=== PATIENT | female | born 1965 | race Caucasian/White ===

== ENCOUNTER → 2017-10-22 09:26 | Outpatient (CLI) | payer OTHER, SELFPAY ==
--- NOTE | 2017-10-22 | DI.RAD.S_ITS ---
This blank DEXA report has been sent in error by the PACS system. The correct and complete report will be forthcoming in 1-2 days. Thank you for your patience and understanding. Dictated by: Jake Mcknight M.D. on 10/22/2017 at 11:25 Approved by: Jake Mcknight M.D. on 10/22/2017 at 11:28
--- NOTE | 2017-10-22 | DI.RAD.S_ITS ---
PROCEDURE: XR CHEST 2V INDICATIONS: COPD TECHNIQUE: 2 views of the chest were acquired. COMPARISON: None. FINDINGS: Surgical changes and devices: None. Lungs and pleura: No pleural effusions or pneumothorax. Lungs are clear. Mild hyperinflation. Mediastinum: Mediastinal contours are normal. Heart size is normal. Bones and chest wall: No suspicious bony abnormalities. Soft tissues appear unremarkable. IMPRESSION: No acute pulmonary process. Dictated by: Anca Kohler M.D. on 10/22/2017 at 11:26 Approved by: Anca Kohler M.D. on 10/22/2017 at 11:28
--- NOTE | 2017-10-22 | DI.RAD.S_ITS ---
PROCEDURE: XR KNEE LT 3V INDICATIONS: KNEE ARTHRITIS TECHNIQUE: 3 views of the knee were acquired. COMPARISON: None. FINDINGS: Bones: No fractures or dislocations. No suspicious bony lesions. Moderate medial and patellofemoral compartment narrowing. Periventricular osteophytes are present. Degenerative subchondral sclerosis is noted in the medial compartment. No gross erosions. Soft tissues: No joint effusion. No suspicious soft tissue calcifications. IMPRESSION: Moderate medial patellofemoral compartment narrowing as above. This is suggestive of osteoarthritis. Dictated by: Anca Kohler M.D. on 10/22/2017 at 11:28 Approved by: Anca Kohler M.D. on 10/22/2017 at 11:59
== END ==
PROVIDERS: Family Provider Internal Medicine; PCP Internal Medicine; Visit Provider Internal Medicine
DX: M25.562 Pain in left knee (principal); M17.12 Unilateral primary osteoarthritis, left knee; J44.9 Chronic obstructive pulmonary disease, unspecified; M85.88 Other specified disorders of bone density and structure, other site; Z78.0 Asymptomatic menopausal state; F17.200 Nicotine dependence, unspecified, uncomplicated
CPT/HCPCS: 71046; 73562; 77080

== ENCOUNTER → 2017-12-13 10:53 | Outpatient (CLI) | payer OTHER, SELFPAY ==
--- NOTE | 2017-12-13 | DI.MG.S_ITS ---
BILATERAL DIGITAL SCREENING MAMMOGRAM 3D/2D WITH CAD: 12/13/2017 CLINICAL: Routine screening. Baseline exam. Family history of breast cancer. No prior exams were available for comparison. The tissue of both breasts is heterogeneously dense. This may lower the sensitivity of mammography. Current study was also evaluated with a Computer Aided Detection (CAD) system. There is an asymmetry with grouped calcifications in the right breast anterior depth central to the nipple seen on the craniocaudal view only. No other significant masses, calcifications, or other findings are seen in either breast. IMPRESSION: INCOMPLETE: NEEDS ADDITIONAL IMAGING EVALUATION The asymmetry in the right breast is indeterminate. Spot magnification and spot compression views are recommended. This exam was interpreted at Station ID: [id number]. NOTE: For mammograms, a report in lay terms will be sent to the patient. Approximately 15% of breast malignancies will not be visualized mammographically. In the management of a palpable breast mass, a negative mammogram must not discourage biopsy of a clinically suspicious lesion. Electronically Signed By: Alana jack/bailey:12/13/2017 17:04:01 letter sent: Additional Imaging Needed ACR BI-RADS Category 0: Incomplete 3340F
== END ==
PROVIDERS: Family Provider Internal Medicine; PCP Internal Medicine; Visit Provider Internal Medicine
DX: Z12.31 Encounter for screening mammogram for malignant neoplasm of breast (principal); Z80.3 Family history of malignant neoplasm of breast
CPT/HCPCS: 77063; 77067

== ENCOUNTER → 2018-01-07 08:55 | Outpatient (CLI) | payer OTHER, SELFPAY ==
--- NOTE | 2018-01-07 | DI.MG.S_ITS ---
UNILATERAL RIGHT DIGITAL DIAGNOSTIC MAMMOGRAM 3D/2D WITH ADDITIONAL VIEWS: 01/07/2018 CLINICAL: Additional evaluation requested from prior study. Family history of breast cancer. Comparison is made to exam dated: 12/13/2017 [facility]. The tissue of right breast is heterogeneously dense. This may lower the sensitivity of mammography. Previously identified asymmetry with grouped calcifications in the right breast anterior depth central and slightly medial to the nipple seen on the craniocaudal view only on comparison screening mammograms persists with additional views. These calcifications are punctate, grouped, and measure 0.6 cm transverse by 0.7 cm anteroposterior. Multiple subcentimeter groups of punctate calcifications are identfied in the right breast on lateral views, but are not as concerning in appearance as the group seen on CC view described above. No clear convincing correlate is dentified on lateral views. IMPRESSION: SUSPICIOUS OF MALIGNANCY Previously identified asymmetry with grouped calcifications in the right breast anterior depth central and slightly medial to the nipple seen on the craniocaudal view only on comparison screening mammograms persists with additional diagnostic views. A stereotactic biopsy is recommended. These results were discussed with the patient by telephone by Dr. Daniels at 10:45 am on 01/07/2018. The patient confirmed her identity with two unique identifiers. The patient agrees to the stereotactic biopsy and understands she will have to travel to [facility] in [place], [place] to have this procedure performed. This exam was interpreted at Station ID: [id number]. NOTE: For mammograms, a report in lay terms will be sent to the patient. Approximately 15% of breast malignancies will not be visualized mammographically. In the management of a palpable breast mass, a negative mammogram must not discourage biopsy of a clinically suspicious lesion. Electronically Signed By: Jorge Daniels M.D. ecl/:01/07/2018 10:50:31 letter sent: Biopsy Required ACR BI-RADS Category 4a: Suspicious abnormality - low suspicion for malignancy 3344F
== END ==
PROVIDERS: Family Provider Internal Medicine; PCP Internal Medicine; Visit Provider Internal Medicine
DX: R92.1 Mammographic calcification found on diagnostic imaging of breast (principal); N64.89 Other specified disorders of breast; Z80.3 Family history of malignant neoplasm of breast
CPT/HCPCS: 77065; G0279

== ENCOUNTER 2018-10-06 10:40 | Emergency (ER) | payer OTHER, SELFPAY ==
[2018-10-06 10:49] VITALS: BP 154/97; PULSE 107; RESP 20; TEMP 36.8; O2SAT 97; BMI 21.4
--- NOTE | 2018-10-06 10:57 | DI.RAD.S_ITS ---
PROCEDURE: XR KNEE LT 3V INDICATIONS: pulling and moving a couch, left knee popped TECHNIQUE: 3 views of the knee were acquired. COMPARISON: None. FINDINGS: Bones: No fractures or dislocations. No suspicious bony lesions. Mild to moderate degenerative changes of the knee are identified. Soft tissues: There is a large joint effusion. No suspicious soft tissue calcifications. IMPRESSION: 1. No displaced knee fractures. 2. Moderate degenerative changes of the left knee. 3. Large left knee effusion. MRI may be helpful to exclude internal derangement, if indicated. Dictated by: Carlos Chacon M.D. on 10/06/2018 at 10:16 Approved by: Carlos Chacon M.D. on 10/06/2018 at 10:17
[2018-10-06] MEDS: HYDROCODONE/ACET 5/325 TABLET 1 TAB PO (11:43)
[2018-10-06] MEDS: KETOROLAC 60 MG/2 ML VIAL IM (11:43)
[2018-10-06] MEDS: LIDOCAINE PATCH 1 EACH ADH..PATCH TOP (11:44)
--- NOTE | 2018-10-06 11:57 | ED_ITS ---
HPI - Extremity Injury (Lower) <ZEHRA LeonardBC - Last Filed: 10/06/18 12:50> General Chief Complaint: Extremity Injury, Lower Stated Complaint: Left knee injury Time Seen by Provider: 10/06/18 11:03 Source: patient and family Mode of arrival: ambulatory Limitations: no limitations History of Present Illness HPI Narrative: The patient is a 53-year-old female current smoker with history of remote left knee injury who presents with a chief complaint of knee pain. She states she was pulling on a couch yesterday at 16 30 and felt a pop in her left knee. She states she has a history of remote knee injury when she was 10 years old on that side. She states she was able to ambulate immediately after and walk around last night. However this morning bad swelling and pain that she could not ambulate. She took some leftover Vicodin yesterday but has not had anything for pain today. She states that because she could not walk, she elected to come to the emergency department. She is not iced or elevated her knee. She states her knee feels like scrambled eggs. She denies any falls, complains of isolated knee injury. Related Data Home Medications Medication Instructions Recorded Confirmed ibuprofen 600 mg PO TIDP #0 10/02/11 Previous Rx's Medication Instructions Recorded hydrocodone-acetaminophen [Lamont] 1 tab PO Q4-6H PRN #7 tab 10/06/18 ketorolac 10 mg PO TID PRN #20 tab 10/06/18 Allergies Allergy/AdvReac Type Severity Reaction Status Date / Time No Known Drug Allergies Allergy Verified 10/06/18 10:54 Review of Systems <MICHAEL Leonard - Last Filed: 10/06/18 12:50> Review of Systems GENERAL: Denies chills, fatigue, malaise, fever, sweats. HEENT: Denies sinus pain, ear pain, sore throat, difficulty swallowing, dizzines s. RESPIRATORY: Denies dyspnea, cough, wheezing, hemoptysis, sputum. CARDIOVASCULAR: Denies chest pain, palpitations, orthopnea, edema, GASTROINTESTINAL: Denies nausea, vomiting, abdominal pain, diarrhea, constipation, melena. : Denies dysuria, frequency, incontinence, hematuria, urinary retention. MUSCULOSKELETAL: See HPI SKIN: Denies rash, skin lesions, or other NEUROLOGIC: Denies weakness, headache, numbness, change in speech, confusion, seizures, incoordination. PSYCHIATRIC: No concerning psychosocial issues. 12 point review of systems is negative except for those stated above PFSH <MICHAEL Leonard - Last Filed: 10/06/18 12:50> Social History Smoking Status: Current every day smoker Social History Smoking Status: Current every day smoker Exam <MICHAEL Leonard - Last Filed: 10/06/18 12:50> Narrative Exam Narrative: GENERAL: This is a well-nourished, well-developed patient, lying on stretcher with ice on knee HEAD: Atraumatic. Normocephalic. No temporal or scalp tenderness. EYES: Pupils equal round and reactive. Extraocular motions intact. No scleral icterus. No injection or drainage. ENT: Nose without bleeding, purulent drainage or septal hematoma. Throat without erythema, tonsillar hypertrophy or exudate. Uvula midline. Airway patent. NECK: Trachea midline. No JVD or lymphadenopathy. Supple, nontender, no meningeal signs. CARDIOVASCULAR: Regular rate and rhythm RESPIRATORY: Occasional cough. No increased respiratory effort. No accessory muscle use. EXTREMITIES: Positive pedal pulses noted left foot able flex and extend left knee. Left knee effusion noted. The difficult to evaluate varus valgus Duong anterior posterior drawer due to patient not relaxing and pain. No palpable instability noted. BACK: Nontender without deformity or crepitance. No flank tenderness. NEURO: AOx3. SKIN: No erythema or ecchymosis noted left knee. Initial Vital Signs Initial Vital Signs: Vital Signs Temperature 98.3 F 10/06/18 10:49 Pulse Rate 107 H 10/06/18 10:49 Respiratory Rate 20 10/06/18 10:49 Blood Pressure 154/97 H 10/06/18 10:49 Pulse Oximetry 97 10/06/18 10:49 <Rosita Estevez DO - Last Filed: 10/08/18 22:24> Initial Vital Signs Initial Vital Signs: Vital Signs Temperature 98.3 F 10/06/18 10:49 Pulse Rate 107 H 10/06/18 10:49 Respiratory Rate 20 10/06/18 10:49 Blood Pressure 154/97 H 10/06/18 10:49 Pulse Oximetry 97 10/06/18 10:49 Procedures <MICHAEL Leonard - Last Filed: 10/06/18 12:50> Orthopedic Splinting/Casting Injury #1: Side: left Lower Extremity Injury Location: knee Lower Extremity Immobilizer: knee immobilizer Other Orthopedic Equipment: crutches Post splinting neuro exam: intact Post splinting vascular exam: intact Placed by: Nursing Course <MICHAEL Leonard - Last Filed: 10/06/18 12:50> Orders Ordered: Discontinued Medications Hydrocodone Bitart/Acetaminophen ([place] 5/325) 1 tab PO NOW ONE Stop: 10/06/18 11:29 Last Admin: 10/06/18 11:43 Dose: 1 tab Ketorolac Tromethamine (Toradol) 60 mg IM NOW ONE Stop: 10/06/18 11:29 Last Admin: 10/06/18 11:43 Dose: 60 mg Lidocaine (Lidoderm) 1 each TOP NOW ONE Stop: 10/06/18 11:29 Last Admin: 10/06/18 11:44 Dose: 1 each Vital Signs - 8 hr 10/06/18 10:49 Temperature 98.3 F Pulse Rate 107 H Respiratory Rate 20 Blood Pressure 154/97 H Pulse Oximetry 97 <Rosita Estevez DO - Last Filed: 10/08/18 22:24> Orders Ordered: Discontinued Medications Hydrocodone Bitart/Acetaminophen ([place] 5/325) 1 tab PO NOW ONE Stop: 10/06/18 11:29 Last Admin: 10/06/18 11:43 Dose: 1 tab Ketorolac Tromethamine (Toradol) 60 mg IM NOW ONE Stop: 10/06/18 11:29 Last Admin: 10/06/18 11:43 Dose: 60 mg Lidocaine (Lidoderm) 1 each TOP NOW ONE Stop: 10/06/18 11:29 Last Admin: 10/06/18 11:44 Dose: 1 each Vital Signs - 8 hr 10/06/18 10:49 Temperature 98.3 F Pulse Rate 107 H Respiratory Rate 20 Blood Pressure 154/97 H Pulse Oximetry 97 MDM - Extremity Injury (Lower) <MICHAEL Leonard - Last Filed: 10/06/18 12:50> Imaging Data Knee x-ray: Radiologist's impression: [address] [address] XRay Report Signed Patient: Monalisa Clarke LMR#: [id number] : 1965Acct:[id number] Age/Sex: 53 / FDate of Service: 10/06/18 Loc: ED Accession Number: [id number] Procedure: XR knee LT 3V Ordering Provider: Rosita Estevez D.O. PROCEDURE: XR KNEE LT 3V INDICATIONS: pulling and moving a couch, left knee popped TECHNIQUE: 3 views of the knee were acquired. COMPARISON: None. FINDINGS: Bones: No fractures or dislocations. No suspicious bony lesions. Mild to m oderate degenerative changes of the knee are identified. Soft tissues: There is a large joint effusion. No suspicious soft tissue calcifications. IMPRESSION: 1. No displaced knee fractures. 2. Moderate degenerative changes of the left knee. 3. Large left knee effusion. MRI may be helpful to exclude internal derangement, if indicated. Dictated by: Carlos Chacon M.D. on 10/06/2018 at 10:16 Approved by: Carlos Chacon M.D. on 10/06/2018 at 10:17 [facility] Narrative Medical decision making narrative: The patient is a [age] year old female who presents after a knee injury. She has a negative x-ray. She is treated for pain in the emergency department lidocaine patch, Lamont and Toradol. She felt much improved after this. She is neurovascularly intact throughout her stay in the emergency department. After application of a knee immobilizer, the patient was able to ambulate well and weightbear. I discussed at length follow up with PCP as well as follow-up with her orthopedist. Gave her contact information for [facility]. Discussed coming back to the ER for any acute concerns such as chest pain shortness of breath or decreased circulation of foot. Patient states understanding of return precautions as well as follow-up care. Discharge Plan Departure Patient Disposition: Home Clinical Impression: Acute pain of left knee, Effusion of knee joint, left Strain of left knee Qualifiers: Encounter type: initial encounter Qualified Code(s): S86.912A - Strain of unspecified muscle(s) and tendon(s) at lower leg level, left leg, initial encounter Discharge Date/Time: 10/06/18 12:48 Interventions: ED Discharge Assessment Last Done: 10/06/18 12:47 Instructions: How to Use Crutches, DI for Knee Sprain, How To Perform RICE (Rest, Ice, Compress, Elevate), DI for Knee Effusion, DI for Knee Pain Activity Restrictions/Additional Instructions: Your x-ray came back with no acute fracture, but I am suspicious of a soft tissue injury Please follow up with Dr. Cazares. Please use rest ice compression elevation. We have placed you in a knee immobilizer and given crutches for comfort. I have given you a prescription of Lamont which can be constipating and sedating. Do not combine it with any other sedating Agents. I have also given you a prescription of ketorolac, do not combine this with any other NSAIDs such as ibuprofen, Mobic, Aleve etc I have also given you contact information for [facility]. Please come back to the emergency department for any acute concerns such as chest pain, shortness of breath etc Prescriptions: New hydrocodone-acetaminophen [Lamont] 5-325 mg tablet 1 tab PO Q4-6H PRN (Reason: pain) Qty: 7 RF: 0 ketorolac 10 mg tablet 10 mg PO TID PRN (Reason: pain) Qty: 20 RF: 0 No Action ibuprofen 600 MG tablet 600 mg PO TIDP Qty: 0 RF: 0 Referrals: [facility] [Provider Group] Juan Cazares MD [Primary Care Provider] - <Rosita Estevez DO - Last Filed: 10/08/18 22:24> [facility] Alivia Attestation: I was immediately available in the department for consultation. Documentation has been reviewed. I agree with assessment and plan.
[2018-10-06 12:47] VITALS: BP 145/86; PULSE 90; RESP 18; TEMP 37; O2SAT 99
== END 2018-10-06 12:48 | disposition home or self-care (01) ==
PROVIDERS: Emergency Provider Nurse Practitioner Family; PCP Internal Medicine
DX: M25.562 Pain in left knee (principal); M25.462 Effusion, left knee; S86.912A Strain of unspecified muscle(s) and tendon(s) at lower leg level, left leg, initial encounter
CPT/HCPCS: 29530; 73562; 96372; 99283; J1885

== ENCOUNTER 2019-07-01 11:48 | Emergency (ER) | payer OTHER, SELFPAY ==
[2019-07-01 11:58] VITALS: BP 151/79; PULSE 81; RESP 16; TEMP 37.2; O2SAT 97; BMI 21.4
--- NOTE | 2019-07-01 12:00 | ED.GENADULT ---
HPI - General Adult General Chief complaint: Extremity Injury, Upper Stated complaint: Sent over By Her doctor for a CT on Right shoulder Time Seen by Provider: 07/01/19 11:50 Source: patient Mode of arrival: Ambulatory Limitations: no limitations History of Present Illness HPI narrative: 53-year-old female sent by her primary doctor for a CT scan of her neck. Patient reports that 3 days ago she had a gradual onset of right arm numbness and subjective weakness. She does not have any specific trauma. No neck pain. No chest pain. No problems breathing. She initially thought that she slept on her arm wrong. She states that it does seem like it is circumferential from her elbow to her hand but does admit that it is more and 1st 2 fingers both on the back in the palm of her hand. She went to her primary doctor today who stated that he wanted a CT scan of her neck ?to make sure everything was okay ? Related Data Home Medications Medication Instructions Recorded Confirmed ibuprofen 600 mg PO TIDP #0 10/02/11 Previous Rx's Medication Instructions Recorded hydrocodone-acetaminophen [[place]] 1 tab PO Q4-6H PRN #7 tab 10/06/18 ketorolac 10 mg PO TID PRN #20 tab 10/06/18 prednisone 40 mg PO DAILY 2 Days #4 tab 07/01/19 Allergies Allergy/AdvReac Type Severity Reaction Status Date / Time No Known Drug Allergies Allergy Verified 10/06/18 10:54 Review of Systems Constitutional Constitutional: Denies fever(s) and Reports weakness (Right upper extremity) ENT Ears, Nose, Mouth, and Throat: Denies vertigo and Denies dizziness Cardiovascular Cardiovascular: Denies chest pain and Denies dyspnea Respiratory Respiratory: Denies dyspnea Gastrointestinal Gastrointestinal: Denies abdominal pain Musculoskeletal Musculoskeletal: Denies myalgias, Denies arthralgias, Reports numbness (Right upper extremity) and Reports tingling (Right Upper extremity) Integumentary/Breasts Skin/Breast: Denies lesions and Denies rash Neurologic Neurologic: Denies confusion, Denies vertigo, Denies dizziness, Reports numbness (Right upper extremity), Reports radicular pain (Right upper extremity), Reports tingling (Right Upper extremity), Reports paresthesias (Right upper extremity) and Reports weakness (Right upper extremity) Psychiatric Psychiatric: Denies confusion Hematologic/Lymphatic Hematologic/Lymphatic: Denies easy bleeding and Denies easy bruising Patient History Medical History Patient denies medical problems (Acute) Social History Smoking Status: Current every day smoker Smoking Status: Current every day smoker alcohol intake frequency: 0-2 drinks per day Substance Use Type: marijuana Exam Initial Vital Signs Initial Vital Signs: Vital Signs Temperature 99.0 F 07/01/19 11:58 Pulse Rate 81 07/01/19 11:58 Respiratory Rate 16 07/01/19 11:58 Blood Pressure 151/79 H 07/01/19 11:58 Pulse Oximetry 97 07/01/19 11:58 Const General: cooperative, healthy appearing, comfortable and well developed Limitations: mental status not altered HENMT Head: normal to inspection and normocephalic Resp Effort & Inspection: normal respiratory effort Auscultation: clear to auscultation bilaterally Cardio Rate: regular rate Rhythm: regular rhythm Pulses: radial pulses present on the right Skin Lesions: no lesions Rashes: no rashes Neuro Other: Patient with decreased sensation to light touch along the radial and median nerve of the right upper extremity. Extrem Other: Full range of motion right shoulder right elbow right wrist. Able to pronate and supinate on the right without problems. 5/5 strength bilateral upper extremities. Course Orders Ordered: ED Orders 07/01/19 11:59 CT cervical spine wo con Stat EKG-12 Lead Stat Discontinued Medications Prednisone (Deltasone) 40 mg PO NOW ONE Stop: 07/01/19 13:04 Last Admin: 07/01/19 13:12 Dose: 40 mg Documented by: PATRICK Vital Signs Vital signs: Vital Signs - 8 hr 07/01/19 11:58 Temperature 99.0 F Pulse Rate 81 Respiratory Rate 16 Blood Pressure 151/79 H Pulse Oximetry 97 Medical Decision Making Imaging Data CT - cervical spine: Radiologist's Impression: [address] [address] [address] Scan Report Signed Patient: Monalisa Clarke LMR#: [id number] : 1965Acct:[id number] Age/Sex: 53 / FDate of Service: 07/01/19 Loc: ED Accession Number: [id number] Procedure: CT cervical spine wo con Ordering Provider: Wei Caceres D.O. PROCEDURE: CT CERVICAL SPINE WO CON INDICATIONS: R arm paresthesias. PCM would like CT scan TECHNIQUE: Noncontrast 3 mm thick sections acquired from the skull base to the T4 level. Sagittal and coronal reformats were then constructed. For radiation dose reduction, the following was used: automated exposure control, adjustment of mA and/or kV according to patient size. COMPARISON: None. FINDINGS: Image quality: Excellent. Bones: No fractures or dislocations. Visualized superior ribs are intact. Levoconvex thoracolumbar scoliotic curvature is seen. There is moderate to severe disc space narrowing seen at C5-C6 and C6-C7. Bridging endplate osteophytes and posterior directed endplate osteophytes can be seen at these levels. At C5-C6, there is moderate to severe right-sided and at least moderate left-sided neural foraminal narrowing seen. Moderate to severe central canal narrowing is seen. At C6-C7, there is moderate to severe right-sided and moderate left-sided neural foraminal narrowing seen. At least moderate central canal narrowing can be seen. Milder degenerative changes are seen elsewhere. Soft tissues: Prevertebral soft tissues are normal in thickness. No paravertebral hematomas. No apical pneumothoraces. IMPRESSION: Focal prominent C5-C6 and C6-C7 degenerative changes are seen. Note is made of levoconvex cervicothoracic scoliotic curvature. Dictated by: Jose Alberto Peng M.D. on 07/01/2019 at 11:17 Approved by: Jose Alberto Peng M.D. on 07/01/2019 at 11:20 ECG Data Attestation: I personally reviewed and interpreted this ECG as follows: Prior ECG tracings: not available for review Interpretation: Sinus rhythm Ventricular rate is 77 Normal axis Normal QRS Normal QTC No ST T wave changes MDM Narrative Medical decision making narrative: EKG unremarkable. Low suspicion for ACS. CT scan does show degenerative changes in the same distribution where she describes the majority of her symptoms in her right upper extremity. I do suspect that her symptoms are musculoskeletal in radiculopathy. She has a follow-up with her primary doctor the end of this week. Will do 3 days worth of steroids she is instructed to keep her follow-up visit. She was given return precautions. She expressed understanding and agreement. Discharge Plan Departure Patient Disposition: Home Clinical Impression: Cervical radiculopathy Discharge Date/Time: 07/01/19 13:13 Instructions: DI for Cervical Radiculopathy Activity Restrictions/Additional Instructions: A prescription for steroids was electronically transmitted to [facility] in [place]. Keep your scheduled follow-up with your primary doctor on Sunday. Return to the emergency department for any new or worsening symptoms Prescriptions: New prednisone 20 mg tablet 40 mg PO DAILY 2 Days Qty: 4 RF: 0 No Action ibuprofen 600 MG tablet 600 mg PO TIDP Qty: 0 RF: 0 hydrocodone-acetaminophen [[place]] 5-325 mg tablet 1 tab PO Q4-6H PRN (Reason: pain) Qty: 7 RF: 0 ketorolac 10 mg tablet 10 mg PO TID PRN (Reason: pain) Qty: 20 RF: 0 Referrals: Juan Cazares MD [Primary Care Provider] -
[2019-07-01] MEDS: predniSONE 20 MG TABLET 40 MG PO (13:12)
== END 2019-07-01 13:13 | disposition home or self-care (01) ==
PROVIDERS: Emergency Provider Emergency Medicine; PCP Internal Medicine; Referring Provider Emergency Medicine
DX: M54.12 Radiculopathy, cervical region (principal); R20.0 Anesthesia of skin; R07.9 Chest pain, unspecified
CPT/HCPCS: 72125; 93005; 99283; 99284